=== PATIENT | female | born 1980 | race Caucasian/White ===

== ENCOUNTER 2017-07-14 18:08 | Emergency (ER) | payer MEDICAID ==
[~2017-07-14] VITALS: Ht 167.6 cm; Wt 81.0 kg
[2017-07-14] MEDS: ONDANSETRON HCL 4MG/2ML VIAL IV ONE ×2 (19:15→19:16)
[2017-07-14] MEDS ORDERED: SODIUM CHLORIDE 0.9% 1,000 ML IV ONE ×2 (19:22→22:50)
[2017-07-14] MEDS ORDERED: MORPHINE SULFATE 4 MG/ML CPJ (NOT FOR IM USE) IV STA ×2 (19:22→22:53)
[2017-07-14 20:03] LABS: BASOPHILS % 0.5 % (0.0-2.0); EOSINOPHILS % 0.2 % (0.0-5.0); HEMATOCRIT. 29.2 % (36.0-48.0); HEMOGLOBIN. 8.9 g/dL (12.0-16.0); LYMPHOCYTES % 9.1 % (20.0-50.0); MEAN CORPUSCULAR HEMOGLOBIN 21.3 pg (28.0-32.0); MEAN CORPUSCULAR VOLUME 69.8 fL (81.0-99.0); MEAN PLATELET VOLUME 7.8 fl (7.4-10.4); MONOCYTES % 3.5 % (2.0-8.0); NEUTROPHILS % 86.7 % (40.0-76.0); PLATELET 351 x1000/uL (130-400); RED BLOOD CELL COUNT 4.18 mill/uL (4.2-5.4); RED CELL DISTRIBUTION WIDTH 15.5 % (11.6-14.6)
[2017-07-14 20:07] LABS: CHLORIDE 108 mEq/L (98-107)
[2017-07-14 20:12] LABS: INR 1.1
[2017-07-14 20:15] LABS: HCG SCREEN NEGATIVE
[2017-07-14 20:16] LABS: CARBON DIOXIDE 26 mEq/L (21-32)
[2017-07-14 20:18] LABS: PLATELET ESTIMATE NORMAL
[2017-07-14] MEDS ORDERED: IOHEXOL-300 100 ML BOTTLE ONE (21:33)
[2017-07-14 22:53] LABS: CLARITY URINE CLEAR (CLEAR); COLOR URINE YELLOW (YELLOW); GLUCOSE URINE NEGATIVE (NEGATIVE); KETONES URINE TRACE (NEGATIVE); LEUKOCYTE ESTERASE URINE NEGATIVE (NEGATIVE); NITRITE URINE NEGATIVE (NEGATIVE); OCCULT BLOOD URINE NEGATIVE (NEGATIVE); PH URINE 5.5 (4.5-8.0); PROTEIN URINE NEGATIVE (NEGATIVE); SPECIFIC GRAVITY URINE 1.057 (1.005-1.030)
[2017-07-14] MEDS ORDERED: ONDANSETRON HCL 4MG/2ML VIAL IV STA (22:53)
[2017-07-14] MEDS ORDERED: LEVOFLOXACIN 750MG PREMIX 150 ML IV ONE (23:00)
[2017-07-14] MEDS ORDERED: METRONIDAZOLE 500 MG PREMIX 100 ML IV ONE (23:00)
[2017-07-15] MEDS ORDERED: MORPHINE SULFATE 4 MG/ML CPJ (NOT FOR IM USE) IV ONE (02:15)
[2017-07-15] MEDS ORDERED: ONDANSETRON HCL 4MG/2ML VIAL IV ONE (02:15)
[2017-07-15 02:17] VITALS: BP 120/70
== END 2017-07-15 02:30 | disposition short-term general hospital (02) ==
LOC: ER 18:29
DX: K63.1 Perforation of intestine (nontraumatic) (principal); Z98.84 Bariatric surgery status
CPT/HCPCS: 36415; 74177; 76705; 80053; 81003; 82270; 83605; 83690; 84703; 85025; 85610; 87040; 87077; 87086; 87186; 93005; 96361; 96365; 96367; 96375; 96376; 99285; J1956; J2270; J2405; J3490; J7030; Q9967; Z7610